=== PATIENT | female | born 1965 | race Caucasian/White ===

== ENCOUNTER 2018-11-26 20:03 | Inpatient (IN) | payer OTHER ==
[~2018-11-26] VITALS: Ht 134.6 cm; Wt 68.0 kg
[2018-11-26] MEDS ORDERED: SODIUM CHLORIDE 0.9% 1L BAG IV* STA (22:03)
[2018-11-26] MEDS ORDERED: ACETAMINOPHEN 325 MG TAB PO STA (22:03)
[2018-11-26] MEDS ORDERED: CEFTRIAXONE 1 GM/50 ML (PMX) 50 ML IVPB STA (22:03)
--- NOTE | 2018-11-26 22:17 | ERD ---
ER Documentation Chief Complaint Chief Complaint ap HPI The patient is a 53-year-old female, presenting to the ER because of epigastric abdominal pain for 3 days, had similar symptoms previously, no aggravating/relieving factor. The pain is worse for the last day. She denies fever, chills, neck pain, chest pain, vomiting, dysuria, diarrhea. She also complains of low abdominal pain. She does not smoke nor drink Past medical history: Gastritis, diabetes mellitus Past surgical history: 3 ROS All systems reviewed and are negative except as per history of present illness. Medications Home Meds Reported Medications Acetaminophen* (Acetaminophen*) 500 MG Extra Strength Tablet, 500 MG PO Q4H PRN for PAIN AND OR ELEVATED TEMP, TAB 11/27/18 Allergies Allergies: Coded Allergies: No Known Allergy (Unverified , 11/26/18) Physical Exam Vitals Vital Signs Date Temp Pulse Resp B/P (MAP) Pulse Ox O2 O2 Flow FiO2 Time Delivery Rate 11/26/18 93 18 115/75 99 Room Air 23:31 (88) 11/26/18 98.7 94 18 145/81 96 Room Air 22:00 (102) 11/26/18 100.1 119 18 145/81 96 20:57 (102) Physical Exam Const: No acute distress. Head: Atraumatic. Eyes: Normal Conjunctiva. ENT: Normal External Ears, Nose and Mouth. Neck: Full range of motion. No meningismus. Resp: Clear to auscultation bilaterally. Cardio: Regular rate and rhythm. Abd: Soft, non distended, normal bowel sounds, moderate and diffuse abdominal tenderness, more tenderness at the right upper quadrant and the suprapubic area, no rigidity/rebound/CVA tenderness Skin: No petechiae or rashes. Back: No midline or flank tenderness. Ext: No cyanosis, or edema. Neur: Awake and alert. No focal deficit Psych: Normal Mood and Affect. Result Diagram: 11/26/18221811/26/182217 Results 24 hrs Laboratory Tests Test 11/26/18 22:18 11/26/18 22:19 11/26/18 22:26 11/26/18 22:30 Prothrombin Time 13.0 Sec Prothrombin Time 1.0 Ratio INR 0.97 International Normalized Ratio Activated 30.9 Sec Partial Thrombop last Time Sodium Level 138 mmol/L Potassium Level 4.1 mmol/L Chloride Level 102 mmol/L Carbon Dioxide 24 mmol/L Level Anion Gap 12 Blood Urea 14 mg/dl Nitrogen Creatinine 0.63 mg/dl Est Glomerular > 60 mL/min Filtrat Rate mL/min Glucose Level 324 mg/dl Calcium Level 9.8 mg/dl Total Bilirubin 0.6 mg/dl Direct Bilirubin 0.00 mg/dl Indirect 0.6 mg/dl Bilirubin Aspartate Amino 26 IU/L Transf (AST/SGOT ) Alanine 32 IU/L Aminotransferase (ALT/SGPT) Alkaline 127 IU/L Phosphatase Troponin I < 0.012 ng/ml Total Protein 8.5 g/dl Albumin 4.4 g/dl Globulin 4.10 g/dl Albumin/Globulin 1.07 Ratio White Blood 12.8 10^3/ul Count Red Blood Count 5.78 10^6/ul Hemoglobin 14.1 g/dl Hematocrit 43.4 % Mean Corpuscular 75.1 fl Volume Mean Corpuscular 24.4 pg Hemoglobin Mean Corpuscular 32.5 g/dl Hemoglobin Elva nt Red Cell 14.6 % Distribution Width Platelet Count 181 10^3/UL Mean Platelet 12.3 fl Volume Immature 0.700 % Granulocytes % Neutrophils % 84.7 % Lymphocytes % 8.3 % Monocytes % 5.6 % Eosinophils % 0.1 % Basophils % 0.6 % Nucleated Red 0.0 /100WBC Blood Cells % Immature 0.090 10^3/ul Granulocytes # Neutrophils # 10.9 10^3/ul Lymphocytes # 1.1 10^3/ul Monocytes # 0.7 10^3/ul Eosinophils # 0.0 10^3/ul Basophils # 0.1 10^3/ul Nucleated Red 0.0 10^3/ul Blood Cells # Urine Color YELLOW Urine Clarity SLIGHTLY CLOUDY Urine pH 5.0 Urine Specific 1.039 [place] Urine Ketones 1+ mg/dL Urine Nitrite NEGATIVE mg/dL Urine Bilirubin NEGATIVE mg/dL Urine NEGATIVE mg/dL Urobilinogen Urine Leukocyte NEGATIVE Sen[place]/ul Esterase Urine 2 /HPF Microscopic RBC Urine 8 /HPF Microscopic WBC Urine Squamous FEW /HPF Epithelial Cells Urine Hemoglobin 1+ mg/dL Urine Glucose 3+ mg/dL Urine Total 1+ mg/dl Protein POC Venous 1.4 mmol/L Lactate Test 11/27/18 00:22 11/27/18 02:08 Lactic Acid 1.3 mmol/L 1.1 mmol/L Level Current Medications Medications Dose Sig/Nabil Start Time Status Last (Trade) Ordered Route PRN Stop Time Admin Dose Reason Admin Sodium 2,000 ml BOLUS OVER 2 11/26/18 DC 11/26/18 Chloride HOURS STAT 22:03 22:46 (NS) IV* 11/26/18 22:04 650 mg ONCE STAT 11/26/18 DC 11/26/18 Acetaminophen PO 22:03 22:46 (Tylenol 11/26/18 22:04 Tab) Ceftriaxone 50 ml @ ONCE STAT 11/26/18 DC 11/26/18 Sodium 100 mls/hr IVPB 22:03 22:45 11/26/18 22:32 Morphine 2 mg ONCE STAT 11/27/18 DC 11/27/18 Sulfate IV 01:54 02:07 (morphine) 11/27/18 01:56 Ketorolac 30 mg ONCE STAT 11/27/18 DC 11/27/18 Tromethamine IV 01:54 02:07 (Toradol) 11/27/18 01:56 Ondansetron 4 mg ONCE STAT 11/27/18 DC 11/27/18 HCl (Zofran IV 01:54 02:07 Inj) 11/27/18 01:56 Procedures/[place] [address] Radiology Main Line: [phone] DIAGNOSTIC IMAGING REPORT Patient: MILAGROS CONTRERAS : 1965 Age: 53 Sex: F MR #: [id number] DOS: 11/27/18 0143 Ordering MD: SIMA MOJICA MD Location: E/R Room/Bed: PROCEDURE: CT Abdomen and pelvis without contrast. CLINICAL INDICATION: Abdominal pain TECHNIQUE: CT scan of the abdomen and pelvis without contrast was performed on a multidetector high-resolution CT scan. . Coronal and sagittal reformatted images were obtained from the axial source images. Standard CT scan of the abdomen pelvis without contrast protocols were performed. The total exam CTDI equals 13.58 mGy and the total exam DLP equals 766.25 mGy- cm. One or more of the following dose reduction techniques were used: - Automated exposure control. - Adjustment of the mA and/or kV according to patient size. Use of iterative reconstruction technique. Dicom images are available COMPARISON: Abdominal ultrasound 11/26/2018 FINDINGS: Gallbladder is distended but no gallbladder wall thickening or pericholecystic fluid. As on the recent abdominal ultrasound the common bile duct is dilated with a maximal transverse diameter of approximately 8 mm. No intrahepatic david iary ductal dilation. No choledocholithiasis. Pancreas unremarkable. Follow-up MRCP may be helpful. Hepatomegaly with hepatic fatty infiltration. No focal hepatic lesions. Spleen and adrenal glands unremarkable. Kidneys normal in size without calcified calculi or hydronephrosis bilaterally. 2.5 cm right inferior parapelvic renal cyst. No other intra masses bilaterally. No evidence of ureteral calcified calculi or dilatation. Enlarged anteverted anteflexed uterus with globular enlarged fundus and superior body and rule out leiomyomatous uterus. In the lower lower uterine segment is a 2 cm elongated cyst likely a Nabothian cyst. No adnexal masses. The enlarged uterus demonstrates mass effect on an otherwise unremarkable urinary bladder. No evidence of intra-abdominal free air, free fluid, abscesses or lymphadenopathy. Small hiatal hernia. Stomach otherwise unremarkable. Small edwige l, large bowel and appendix unremarkable. Minimal atherosclerotic vascular disease. No aortic aneurysm. Right hilar calcified lymph node. Lung bases otherwise unremarkable. Abdominal pelvic wall unremarkable. Degenerative changes lower thoracic and lumbar spine without acute osseous findings are osteoblastic/osteolytic lesions. IMPRESSION: 1. No gastrointestinal disease. Specifically unremarkable appendix. 2. Distended gallbladder otherwise unremarkable. Dilated common bile duct maximal transverse diameter 8 mm without obstructing lesion demonstrated. Follow-up MRCP may be helpful. 3. Enlarged anteverted anteflexed uterus likely a leiomyomatous uterus with a 2 cm lower uterine segment cyst consistent with a Nabothian cyst. The enlarged uterus impresses the urinary bladder which is otherwise unremarkable. No adnexal masses. Follow-up pelvic ultrasound may be helpful. 4. No calcified urinary calculi or obstructive uropathy. 2.5 cm right inferior parapelvic renal cyst. RPTAT:AAJJ Physician Prisca Date Time Electronically viewed and signed by Physician Prisca on 11/27/2018 03:26 BM/ CC: SIMA MOJICA MD [id number] [place] [address] Radiology Main Line: [phone] DIAGNOSTIC IMAGING REPORT Patient: MILAGROS CONTRERAS : 1965 Age: 53 Sex: F MR #: [id number] DOS: 11/26/18 2203 Ordering MD: KARLI MANSFIELD MD Location: E/R Room/Bed: PROCEDURE: Portable chest x-ray. CLINICAL INDICATION: Sepsis. TECHNIQUE: Portable AP view of the chest. COMPARISON: None. FINDINGS: There is minimal bibasilar atelectasis. No pulmonary edema or conolidation is identified. The cardiac silhouette is magnified. No pleural effusion is seen. There is no pneumothorax. IMPRESSION: No evidence of acute cardiopulmonary disease. RPTAT: HTAR .Brennan Wright MD, MD Date Time Electronically viewed and signed by .Brennan Wright MD, MD on 11/26/2018 23:58 .R/ CC: KARLI MANSFIELD MD [id number] MEDICAL MAKING DECISION: The patient is a 53-year-old female, presenting with acute abdominal pain, concerning for acute choledocholithiasis, acute diabetic hyperglycemia. Treated with normosaline 30 mm/kg IV for acute dehydration/hyper glycemia, Rocephin 1 g IV empirically, Tylenol 650 mg p.o. for fever, morphine 2 mg IV and Toradol 30 mg IV for pain and Zofran 4 mg IV for nausea with good response. The differential diagnoses considered include but are not limited to cholelithiasis, cholecystitis, choledocholithiasis, cholangitis, pancreatitis, hepatitis, gastritis, peptic ulcer disease, gastric ulcer, appendicitis, cystitis, diverticulitis, partial small bowel obstruction. Departure Diagnosis: Primary Impression: Abdominal pain Additional Impressions: Hyperglycemia Fibroid Renal cyst, right Condition: Stable Comments The patient's blood pressure was elevated (>120/80) but appears stable without evidence of hypertension emergency or urgency. The patient was counseled about the risks of hypertension and urged to pursue outpatient monitoring and therapy within a week with their primary care physician. I discussed the findings with the patient. I discussed the patient with Dr. Gonzalez at 4 AM, who was made aware of the lab, the treatment, the patient condition. The patient is admitted to [facility], [facility] Disclaimer: Inadvertent spelling and grammatical errors are likely due to E HR/dictation software use and do not reflect on the overall quality of patient care. Also, please note that the electronic time recorded on this note does not necessarily reflect the actual time of the patient encounter. SIMA MOJICA MD November 26, 2018 22:17
[2018-11-27] MEDS ORDERED: KETOROLAC 30 MG INJ IV STA (01:54)
[2018-11-27] MEDS ORDERED: morphine 2 MG INJ IV STA (01:54)
[2018-11-27] MEDS ORDERED: ONDANSETRON 4 MG INJ IV STA (01:54)
[2018-11-27] MEDS ORDERED: ACET-141 PO (02:47)
[2018-11-27 05:10] VITALS: Ht 134.6 cm; Wt 68.0 kg
[2018-11-27] MEDS ORDERED: NACL 0.9% 3 ML SYG IV SCH (06:00)
[2018-11-27] MEDS ORDERED: ALBUTEROL/IPRATROPIUM (NEB) 3 ML AMP HHN PRN (06:00)
[2018-11-27] MEDS: DEXTROSE 5%-0.45% NACL 1,000 ML IV SCH ×3 (06:24→18:41)
[2018-11-27 08:00] VITALS: BP 133/81; PULSE 84; RESP 17
[2018-11-27] MEDS: CEFTRIAXONE 1 GM/50 ML (PMX) 50 ML IVPB SCH (08:39)
[2018-11-27] MEDS: FAMOTIDINE 20 MG INJ IV SCH ×2 (08:40→21:11)
--- NOTE | 2018-11-27 08:56 | HP ---
Date/Time of Note Date/Time of Note DATE: 11/27/18 TIME: 08:48 Assessment/Plan VTE Prophylaxis Pharmacological prophylaxis: other Lines/Catheters IV Catheter Type (from Nrsg): Saline Lock Assessment/Plan Assessment/Plan 1. Lower back/right upper back/right hip area pain -Patient with a history of surgery in those areas -CT abdomen/pelvis did not product picker any abnormality in the hip or back area -Will obtain x-ray of lumbar -Pain management -PT eval 2. Dilated GB and CBD -LFTs WNL -Check MRCP and lipase -GI consulted for MRCP results 3. Hyperglycemia: Patient denied history of diabetes -Check A1c -Insulin while in-house 4. UTI: IV antibiotic. Follow-up culture results Result Diagram: 11/26/18221811/26/188 Results 24hrs Laboratory Tests Test 11/26/18 22:18 11/26/18 22:19 11/26/18 22:26 11/26/18 22:30 Prothrombin Time 13.0 Prothrombin Time 1.0 Ratio INR International 0.97 Normalized Ratio Activated 30.9 Partial Thrombopl ast Time Sodium Level 138 Potassium Level 4.1 Chloride Level 102 Carbon Dioxide 24 Level Anion Gap 12 Blood Urea 14 Nitrogen Creatinine 0.63 Est Glomerular > 60 Filtrat Rate mL/min Glucose Level 324 H Calcium Level 9.8 Total Bilirubin 0.6 Direct Bilirubin 0.00 Indirect 0.6 Bilirubin Aspartate Amino 26 Transf (AST/SGOT) Alanine 32 Aminotransferase (ALT/SGPT) Alkaline 127 H Phosphatase Troponin I < 0.012 Total Protein 8.5 H Albumin 4.4 Globulin 4.10 H Albumin/Globulin 1.07 Ratio White Blood Count 12.8 H Red Blood Count 5.78 H Hemoglobin 14.1 Hematocrit 43.4 Mean Corpuscular 75.1 L Volume Mean Corpuscular 24.4 L Hemoglobin Mean Corpuscular 32.5 Hemoglobin Concen t Red Cell 14.6 H Distribution Width Platelet Count 181 Mean Platelet 12.3 H Volume Immature 0.700 H Granulocytes % Neutrophils % 84.7 H Lymphocytes % 8.3 L Monocytes % 5.6 Eosinophils % 0.1 Basophils % 0.6 Nucleated Red 0.0 Blood Cells % Immature 0.090 H Granulocytes # Neutrophils # 10.9 H Lymphocytes # 1.1 Monocytes # 0.7 Eosinophils # 0.0 Basophils # 0.1 Nucleated Red 0.0 Blood Cells # Urine Color YELLOW Urine Clarity SLIGHTLY CLOUDY A Urine pH 5.0 Urine Specific 1.039 [place] Urine Ketones 1+ H Urine Nitrite NEGATIVE Urine Bilirubin NEGATIVE Urine NEGATIVE Urobilinogen Urine Leukocyte NEGATIVE Esterase Urine Microscopic 2 RBC Urine Microscopic 8 H WBC Urine Squamous FEW Epithelial Cells Urine Hemoglobin 1+ H Urine Glucose 3+ H Urine Total 1+ H Protein POC Venous 1.4 Lactate Test 11/27/18 00:22 11/27/18 02:08 Lactic Acid Level 1.3 1.1 HPI/ROS Admit Date/Time Admit Date/Time November 27, 2018 at 04:02 Hx of Present Illness This is a 53-year-old female with a history of lower back surgery and 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 She said the lower back and right upper buttock/hip area pain is been going on for 2 years. The suprapubic/lower abdominal area pain for the past 3 days. She said at times walking has been difficult because of pain. She denied urinary or bladder incontinence. No other complaints. When she presented to ER, CT abdomen/pelvis was done which shows the followin. No gastrointestinal disease. Specifically unremarkable appendix. 2. Distended gallbladder otherwise unremarkable. Dilated common bile duct maximal transverse diameter 8 mm without obstructing lesion demonstrated. Follow-up MRCP may be helpful. 3. Enlarged anteverted anteflexed uterus likely a leiomyomatous uterus with a 2 cm lower uterine segment cyst consistent with a Nabothian cyst. The enlarged uterus impresses the urinary bladder which is otherwise unremarkable. No adnexal masses. Follow-up pelvic ultrasound may be helpful. 4. No calcified urinary calculi or obstructive uropathy. 2.5 cm right inferior parapelvic renal cyst. Labs shows a WBC of almost 13,000 and blood glucose of around 320. She denied history of diabetes. UA is suggestive of UTI, which correlates with suprapubic/lower abdominal pain PMH/Family/Social Past Medical History Medical History: other (See HPI) Past Surgical History Past Surgical Hx: other (See HPI) Family History Significant Family History: no pertinent family hx Social History Alcohol Use: none Smoking Status: Never smoker Drug Use: none Exam Constitutional: no acute distress Head: normocephalic, atraumatic Eyes: EOMI, PERRL Respiratory: clear to auscultation, normal air movement Cardiovascular: regular rate and rhythm, nl pulses Gastrointestinal: soft, non-tender Extremities: normal pulses Medications Current Medications Dextrose/Sodium Chloride 1,000 ml @ 100 mls/hr Q10H IV Last administered on 11/27/18at 06:24; Admin Dose 100 MLS/HR; Start 11/27/18 at 05:38 IV Flush (NS 3 ml) 3 ml PER PROTOCOL IV ; Start 11/27/18 at 06:00 Ondansetron HCl (Zofran Inj) 4 mg Q6H PRN IV NAUSEA/VOMITING; Start 11/27/18 at 06:00 Morphine Sulfate (morphine) 2 mg Q4H PRN IV .SEVERE PAIN 7-10; Start 11/27/18 at 06:00 Famotidine (Pepcid Iv) 20 mg Q12 IV Last administered on 11/27/18at 08:40; Admin Dose 20 MG; Start 11/27/18 at 09:00 Albuterol/ Ipratropium (Duoneb) 3 ml Q2H RESP THERAPY PRN HHN SHORTNESS OF BREATH; Start 11/27/18 at 06:00 Ceftriaxone Sodium 50 ml @ 100 mls/hr DAILY IVPB Last administered on 11/27/18at 08:39; Admin Dose 100 MLS/HR; Start 11/27/18 at 09:00 Coded Allergies: No Known Allergy (Unverified , 11/26/18) Social History Smoking Status: Never smoker Exam/Review of Systems Vital Signs Vitals Vital Signs Date Temp Pulse Resp B/P (MAP) Pulse Ox O2 O2 Flow FiO2 Time Delivery Rate 11/27/18 99.3 84 17 133/81 97 Room Air 08:00 (98) Intake and Output 11/26/18 11/26/18 11/27/18 1515:00 23:00 07:00 IntakeIntake Total 1000 ml BalanceBalance 1000 ml CHERYL ALVA MD November 27, 2018 08:56
[2018-11-27] MEDS: morphine 2 MG INJ IV PRN ×2 (10:45→15:56)
[2018-11-27 14:00] VITALS: BP 160/89; PULSE 97; RESP 18
[2018-11-27 17:10] VITALS: BP 148/79; PULSE 89; RESP 17
[2018-11-27] MEDS ORDERED: LORAZEPAM 2 MG INJ IM ONE (17:30)
[2018-11-27] MEDS: ONDANSETRON 4 MG INJ IV PRN (18:40)
[2018-11-27 20:00] VITALS: BP 127/82; PULSE 99; RESP 18
[2018-11-28 02:00] VITALS: BP 121/74; PULSE 87; RESP 18
[2018-11-28] MEDS: DEXTROSE 5%-0.45% NACL 1,000 ML IV SCH ×2 (04:32→11:38)
[2018-11-28] MEDS: morphine 2 MG INJ IV PRN ×2 (04:36→21:04)
[2018-11-28 08:36] VITALS: BP 142/84; PULSE 80; RESP 18
[2018-11-28] MEDS: CEFTRIAXONE 1 GM/50 ML (PMX) 50 ML IVPB SCH (08:56)
[2018-11-28] MEDS: FAMOTIDINE 20 MG INJ IV SCH ×2 (08:56→21:03)
[2018-11-28] MEDS: ONDANSETRON 4 MG INJ IV PRN ×3 (09:01→21:04)
--- NOTE | 2018-11-28 13:46 | PN ---
Date/Time of Note Date/Time of Note DATE: 11/27/18 Late entry from 11/27/2018 Assessment/Plan VTE Prophylaxis Risk score (from Ns)>0 risk: 2 SCD applied (from Ns): Yes Pharmacological prophylaxis: other Lines/Catheters IV Catheter Type (from Nrs): Peripheral IV Urinary Cath still in place: No Assessment/Plan Hospital Course S: Patient had no acute events overnight. O: VS- see below PE: Gen: Lying in bed, no acute distress. Head: Atraumatic. Eyes: Normal Conjunctiva. ENT: Normal External Ears, Nose and Mouth. Neck: Full range of motion. No meningismus. Resp: Clear to auscultation bilaterally. Cardio: Regular rate and rhythm. Abd: Soft, non distended, normal bowel sounds, moderate and diffuse abdominal tenderness, some positive tenderness at the right upper quadrant and the suprapubic area, no rigidity/rebound/CVA tenderness Ext: No lower extremity edema bilaterally Neuro: No focal deficit Assessment/Plan: 53-year-old female who presents with: 1. Lower back/right upper back/right hip area pain-Patient with a history of surgery in those areas-CT abdomen/pelvis did not pickup driver any abnormality in the hip or back area. Lumbar x-ray results reviewed -For now continue pain management -Follow-up PT eval 2. Dilated GB and CBD-LFTs WNL -Will check MRCP and lipase -Consider GI consult depending on the MRCP results 3. Hyperglycemia: Patient denied history of diabetes. Sugar was 324 and admission, no DKA. -Follow-up A1c, monitor sugars -Insulin while in-house 4. UTI: UA was negative, urine culture showed mixed growth, possible contaminant -Monitor for now, consider stopping IV antibiotic. -Follow-up final culture results Result Diagram: 11/28/18 0538 11/26/18 2218 Results 24hrs Laboratory Tests Test 11/27/18 17:49 11/28/18 05:38 Hemoglobin A1c 10.9 H Iron Level 15 L Total Iron Binding Capacity 320 Percent Iron Saturation 5 L White Blood Count 5.1 # Red Blood Count 5.09 Hemoglobin 12.5 Hematocrit 38.6 Mean Corpuscular Volume 75.8 L Mean Corpuscular Hemoglobin 24.6 L Mean Corpuscular Hemoglobin Concent 32.4 Red Cell Distribution Width 14.7 H Platelet Count 180 Mean Platelet Volume 12.7 H Immature Granulocytes % 0.200 Neutrophils % 55.5 Lymphocytes % 30.7 Monocytes % 10.8 Eosinophils % 1.8 Basophils % 1.0 Nucleated Red Blood Cells % 0.0 Immature Granulocytes # 0.010 Neutrophils # 2.8 Lymphocytes # 1.6 Monocytes # 0.6 Eosinophils # 0.1 Basophils # 0.1 Nucleated Red Blood Cells # 0.0 Phosphorus Level 3.8 Magnesium Level 1.9 Total Bilirubin 0.3 Direct Bilirubin 0.00 Indirect Bilirubin 0.3 Aspartate Amino Transf (AST/SGOT) 35 Alanine Aminotransferase (ALT/SGPT) 28 Alkaline Phosphatase 75 Total Protein 6.8 # Albumin 3.7 Triglycerides Level 330 H Cholesterol Level 244 H LDL Cholesterol, Calculated 147 HDL Cholesterol 31 L Cholesterol/HDL Ratio 7.8 Exam/Review of Systems Exam Vitals Vital Signs Date Temp Pulse Resp B/P (MAP) Pulse Ox O2 O2 Flow FiO2 Time Delivery Rate 11/28/18 98.2 80 18 142/84 96 08:36 (103) 11/27/18 Room Air 08:00 Intake and Output 11/27/18 11/27/18 11/28/18 1515:00 23:00 07:00 IntakeIntake Total 50 ml 1000 ml 1000 ml BalanceBalance 50 ml 1000 ml 1000 ml Results Results 24hrs Laboratory Tests Test 11/27/18 17:49 11/28/18 05:38 Hemoglobin A1c 10.9 H Iron Level 15 L Total Iron Binding Capacity 320 Percent Iron Saturation 5 L White Blood Count 5.1 # Red Blood Count 5.09 Hemoglobin 12.5 Hematocrit 38.6 Mean Corpuscular Volume 75.8 L Mean Corpuscular Hemoglobin 24.6 L Mean Corpuscular Hemoglobin Concent 32.4 Red Cell Distribution Width 14.7 H Platelet Count 180 Mean Platelet Volume 12.7 H Immature Granulocytes % 0.200 Neutrophils % 55.5 Lymphocytes % 30.7 Monocytes % 10.8 Eosinophils % 1.8 Basophils % 1.0 Nucleated Red Blood Cells % 0.0 Immature Granulocytes # 0.010 Neutrophils # 2.8 Lymphocytes # 1.6 Monocytes # 0.6 Eosinophils # 0.1 Basophils # 0.1 Nucleated Red Blood Cells # 0.0 Phosphorus Level 3.8 Magnesium Level 1.9 Total Bilirubin 0.3 Direct Bilirubin 0.00 Indirect Bilirubin 0.3 Aspartate Amino Transf (AST/SGOT) 35 Alanine Aminotransferase (ALT/SGPT) 28 Alkaline Phosphatase 75 Total Protein 6.8 # Albumin 3.7 Triglycerides Level 330 H Cholesterol Level 244 H LDL Cholesterol, Calculated 147 HDL Cholesterol 31 L Cholesterol/HDL Ratio 7.8 Medications Medication Current Medications Dextrose/Sodium Chloride 1,000 ml @ 100 mls/hr Q10H IV Last administered on 11/28/18 04:32; Admin Dose 100 MLS/HR; Start 11/27/18 at 05:38 IV Flush (NS 3 ml) 3 ml PER PROTOCOL IV ; Start 11/27/18 at 06:00 Ondansetron HCl (Zofran Inj) 4 mg Q6H PRN IV NAUSEA/VOMITING Last administered on 11/28/18 09:01; Admin Dose 4 MG; Start 11/27/18 at 06:00 Morphine Sulfate (morphine) 2 mg Q4H PRN IV .SEVERE PAIN 7-10 Last administered on 11/28/18 04:36; Admin Dose 2 MG; Start 11/27/18 at 06:00 Famotidine (Pepcid Iv) 20 mg Q12 IV Last administered on 11/28/18at 08:56; Admin Dose 20 MG; Start 11/27/18 at 09:00 Albuterol/ Ipratropium (Duoneb) 3 ml Q2H RESP THERAPY PRN HHN SHORTNESS OF BREATH; Start 11/27/18 at 06:00 Ceftriaxone Sodium 50 ml @ 100 mls/hr DAILY IVPB Last administered on 11/28/18 08:56; Admin Dose 100 MLS/HR; Start 11/27/18 at 09:00 CATIE TOURE November 28, 2018 13:46
--- NOTE | 2018-11-28 13:51 | PN ---
Date/Time of Note Date/Time of Note DATE: 11/28/18 TIME: 13:48 Assessment/Plan VTE Prophylaxis Risk score (from Nsg)>0 risk: 2 SCD applied (from Nsg): Yes Pharmacological prophylaxis: other Lines/Catheters IV Catheter Type (from Nrsg): Peripheral IV Urinary Cath still in place: No Assessment/Plan Hospital Course S: Patient had MRCP performed yesterday, results reviewed. Asking for liquid diet. O: VS- see below PE: Gen: Lying in bed, no acute distress. Head: Atraumatic. Eyes: Normal Conjunctiva. ENT: Normal External Ears, Nose and Mouth. Neck: Full range of motion. No meningismus. Resp: Clear to auscultation bilaterally. Cardio: Regular rate and rhythm. Abd: Soft,non distended, normal bowel sounds, moderate and diffuse abdominal tenderness, some positive tenderness at the right upper quadrant and the suprapubic area, no rigidity/rebound/CVA tenderness Ext: No lower extremity edema bilaterally Neuro: No focal deficit MRCP: IMPRESSION: No evidence of biliary duct obstruction. No gallstones. Assessment/Plan: 53-year-old female who presents with: 1. Lower back/right upper back/right hip area pain-Patient with a history of surgery in those areas-CT abdomen/pelvis did not mushroom picker any abnormality in the hip or back area. Lumbar x-ray results reviewed, as well as MRCP did not show any acute findings. -For now continue pain management -Follow-up lipase levels. -Follow-up PT eval 2. Dilated GB and CBD-LFTs WNL. MRCP did not show any acute findings. -Again, still waiting for lipase levels -follow-up results of this -Consider GI consult 3. Hyperglycemia: Patient denied history of diabetes. Sugar was 324 and admission, A1c 10.9. -We will start ISS, monitor sugars 4. UTI: UA was negative, urine culture showed mixed growth, possible contaminant -Monitor for now, -Follow-up final culture results 5. Elevated cholesterol: Start Lipitor 6. Low MCV: Hemoglobin stable, iron levels are low. -We will give 1 dose of IV iron. Result Diagram: 11/28/18 0538 11/26/18 2218 Results 24hrs Laboratory Tests Test 11/27/18 17:49 11/28/18 05:38 Hemoglobin A1c 10.9 H Iron Level 15 L Total Iron Binding Capacity 320 Percent Iron Saturation 5 L White Blood Count 5.1 # Red Blood Count 5.09 Hemoglobin 12.5 Hematocrit 38.6 Mean Corpuscular Volume 75.8 L Mean Corpuscular Hemoglobin 24.6 L Mean Corpuscular Hemoglobin Concent 32.4 Red Cell Distribution Width 14.7 H Platelet Count 180 Mean Platelet Volume 12.7 H Immature Granulocytes % 0.200 Neutrophils % 55.5 Lymphocytes % 30.7 Monocytes % 10.8 Eosinophils % 1.8 Basophils % 1.0 Nucleated Red Blood Cells % 0.0 Immature Granulocytes # 0.010 Neutrophils # 2.8 Lymphocytes # 1.6 Monocytes # 0.6 Eosinophils # 0.1 Basophils # 0.1 Nucleated Red Blood Cells # 0.0 Phosphorus Level 3.8 Magnesium Level 1.9 Total Bilirubin 0.3 Direct Bilirubin 0.00 Indirect Bilirubin 0.3 Aspartate Amino Transf (AST/SGOT) 35 Alanine Aminotransferase (ALT/SGPT) 28 Alkaline Phosphatase 75 Total Protein 6.8 # Albumin 3.7 Triglycerides Level 330 H Cholesterol Level 244 H LDL Cholesterol, Calculated 147 HDL Cholesterol 31 L Cholesterol/HDL Ratio 7.8 Exam/Review of Systems Exam Vitals Vital Signs Date Temp Pulse Resp B/P (MAP) Pulse Ox O2 O2 Flow FiO2 Time Delivery Rate 11/28/18 98.2 80 18 142/84 96 08:36 (103) 11/27/18 Room Air 08:00 Intake and Output 11/27/18 11/27/18 11/28/18 1515:00 23:00 07:00 IntakeIntake Total 50 ml 1000 ml 1000 ml BalanceBalance 50 ml 1000 ml 1000 ml Results Results 24hrs Laboratory Tests Test 11/27/18 17:49 11/28/18 05:38 Hemoglobin A1c 10.9 H Iron Level 15 L Total Iron Binding Capacity 320 Percent Iron Saturation 5 L White Blood Count 5.1 # Red Blood Count 5.09 Hemoglobin 12.5 Hematocrit 38.6 Mean Corpuscular Volume 75.8 L Mean Corpuscular Hemoglobin 24.6 L Mean Corpuscular Hemoglobin Concent 32.4 Red Cell Distribution Width 14.7 H Platelet Count 180 Mean Platelet Volume 12.7 H Immature Granulocytes % 0.200 Neutrophils % 55.5 Lymphocytes % 30.7 Monocytes % 10.8 Eosinophils % 1.8 Basophils % 1.0 Nucleated Red Blood Cells % 0.0 Immature Granulocytes # 0.010 Neutrophils # 2.8 Lymphocytes # 1.6 Monocytes # 0.6 Eosinophils # 0.1 Basophils # 0.1 Nucleated Red Blood Cells # 0.0 Phosphorus Level 3.8 Magnesium Level 1.9 Total Bilirubin 0.3 Direct Bilirubin 0.00 Indirect Bilirubin 0.3 Aspartate Amino Transf (AST/SGOT) 35 Alanine Aminotransferase (ALT/SGPT) 28 Alkaline Phosphatase 75 Total Protein 6.8 # Albumin 3.7 Triglycerides Level 330 H Cholesterol Level 244 H LDL Cholesterol, Calculated 147 HDL Cholesterol 31 L Cholesterol/HDL Ratio 7.8 Medications Medication Current Medications Dextrose/Sodium Chloride 1,000 ml @ 100 mls/hr Q10H IV Last administered on 11/28/18 04:32; Admin Dose 100 MLS/HR; Start 11/27/18 at 05:38 IV Flush (NS 3 ml) 3 ml PER PROTOCOL IV ; Start 11/27/18 at 06:00 Ondansetron HCl (Zofran Inj) 4 mg Q6H PRN IV NAUSEA/VOMITING Last administered on 11/28/18 09:01; Admin Dose 4 MG; Start 11/27/18 at 06:00 Morphine Sulfate (morphine) 2 mg Q4H PRN IV .SEVERE PAIN 7-10 Last administered on 11/28/18 04:36; Admin Dose 2 MG; Start 11/27/18 at 06:00 Famotidine (Pepcid Iv) 20 mg Q12 IV Last administered on 11/28/18 08:56; Admin Dose 20 MG; Start 11/27/18 at 09:00 Albuterol/ Ipratropium (Duoneb) 3 ml Q2H RESP THERAPY PRN HHN SHORTNESS OF BREATH; Start 11/27/18 at 06:00 Ceftriaxone Sodium 50 ml @ 100 mls/hr DAILY IVPB Last administered on 11/28/18 08:56; Admin Dose 100 MLS/HR; Start 11/27/18 at 09:00 CATIE TOURE November 28, 2018 13:51
[2018-11-28] MEDS ORDERED: DEXTROSE 50% 50 ML SYRINGE IV PRN ×2 (14:30)
[2018-11-28] MEDS ORDERED: GLUCAGON 1 MG INJ IM PRN (14:30)
[2018-11-28] MEDS ORDERED: GLUCOSE GEL 15 GRAM TUBE BUCCAL PRN (14:30)
[2018-11-28] MEDS ORDERED: GLUCOSE GEL 15 GRAM TUBE PO PRN ×2 (14:30)
[2018-11-28] MEDS ORDERED: SOD FERRIC GLUC COMPLX 125 MG in SOD CHLORIDE 0.9% 100 ML IVPB ONE (15:30)
[2018-11-28] MEDS: ATORVASTATIN 40 MG TAB PO SCH ×2 (16:08→21:03)
[2018-11-28 16:27] VITALS: BP 167/85; PULSE 79; RESP 16
[2018-11-28] MEDS: INSULIN ASPART [NOVOLOG] 3 ML PEN SC SCH ×2 (18:01→21:00)
[2018-11-28 20:00] VITALS: BP 147/87; PULSE 79; RESP 18
[2018-11-29 02:00] VITALS: BP 140/77; PULSE 69; RESP 18
[2018-11-29] MEDS: ACCU-CHEK XX SCH (02:00)
[2018-11-29] MEDS: ACETAMINOPHEN 325 MG TAB PO PRN ×2 (03:09→10:17)
[2018-11-29 08:29] VITALS: BP 135/81; PULSE 77; RESP 17
[2018-11-29] MEDS: FAMOTIDINE 20 MG TAB PO SCH ×2 (08:32→20:16)
[2018-11-29] MEDS: INSULIN ASPART [NOVOLOG] 3 ML PEN SC SCH ×4 (08:32→20:15)
[2018-11-29] MEDS: CEFTRIAXONE 1 GM/50 ML (PMX) 50 ML IVPB SCH (08:32)
[2018-11-29] MEDS: ONDANSETRON 4 MG INJ IV PRN (10:18)
--- NOTE | 2018-11-29 11:51 | PN ---
Date/Time of Note Date/Time of Note DATE: 11/29/18 TIME: 11:48 Assessment/Plan VTE Prophylaxis Risk score (from Nsg)>0 risk: 3 SCD applied (from Nsg): Yes Pharmacological prophylaxis: other Lines/Catheters IV Catheter Type (from Nrsg): [place] Urinary Cath still in place: No Assessment/Plan Hospital Course S: Patient still complaining of headache symptoms. O: VS- see below PE: Gen: Lying in bed, no acute distress. Head: Atraumatic. Eyes: Normal Conjunctiva. ENT: Normal External Ears, Nose and Mouth. Neck: Full range of motion. No meningismus. Resp: Clear to auscultation bilaterally. Cardio: Regular rate and rhythm. Abd: Soft,non distended, normal bowel sounds, less abdominal tenderness, no rigidity/rebound/CVA tenderness Ext: No lower extremity edema bilaterally Neuro: No focal deficit MRCP: IMPRESSION: No evidence of biliary duct obstruction. No gallstones. Assessment/Plan: 53-year-old female who presents with: 1. Lower back/right upper back/right hip area pain-Patient with a history of surgery in those areas-CT abdomen/pelvis did not last picker any abnormality in the hip or back area. Lumbar x-ray results reviewed, as well as MRCP did not show any acute findings. Lipase has been normal and patient has been tolerating clear liquid diet -For now advance to carb controlled diet -Continue PRN pain control medications 2. Dilated GB and CBD-LFTs WNL. MRCP did not show any acute findings. Again lipase normal. However patient complaining of headache -Monitor for now, given headache symptoms we will obtain head CT 3. Likely new diabetes: Patient denied history of diabetes on admission, however, sugar was 324 A1c 10.9. -For now continue with ISS, monitor sugars, will also obtain family living educator consult 4. UTI: UA was negative, urine culture showed mixed growth, possible contaminant -Monitor for now 5. Elevated cholesterol: Lipitor 6. Low MCV: Hemoglobin stable, received IV iron earlier for low iron levels -Monitor CBC Dispo: Likely home in 24 hours if sugars improved, seen by family living educator, results of head CT urine, and her overall pain symptoms have improved Result Diagram: 11/29/18 0525 11/29/18 0525 Results 24hrs Laboratory Tests Test 11/28/18 14:07 11/28/18 17:49 11/28/18 21:03 11/29/18 05:25 Sodium Level 138 139 Potassium Level 4.4 3.8 Chloride Level 103 104 Carbon Dioxide Level 24 26 Anion Gap 11 9 Blood Urea Nitrogen 12 16 Creatinine 0.47 0.59 Est Glomerular > 60 > 60 Filtrat Rate mL/min Glucose Level 243 H 155 Calcium Level 9.0 9.5 Total Bilirubin 0.3 Direct Bilirubin 0.00 Indirect Bilirubin 0.3 Aspartate Amino 36 Transf (AST/SGOT) Alanine 36 Aminotransferase (AL T/SGPT) Alkaline Phosphatase 90 Total Protein 7.0 Albumin 3.8 Globulin 3.20 Albumin/Globulin 1.18 Ratio Lipase 159 Bedside Glucose 198 139 White Blood Count 5.9 Red Blood Count 5.30 Hemoglobin 13.0 Hematocrit 40.0 Mean Corpuscular 75.5 L Volume Mean Corpuscular 24.5 L Hemoglobin Mean Corpuscular 32.5 Hemoglobin Concent Red Cell 14.5 Distribution Width Platelet Count 230 # Mean Platelet Volume 12.1 H Immature 0.300 Granulocytes % Neutrophils % 54.3 Lymphocytes % 32.9 Monocytes % 9.9 Eosinophils % 1.9 Basophils % 0.7 Nucleated Red Blood 0.0 Cells % Immature 0.020 Granulocytes # Neutrophils # 3.2 Lymphocytes # 1.9 Monocytes # 0.6 Eosinophils # 0.1 Basophils # 0.0 Nucleated Red Blood 0.0 Cells # Phosphorus Level 3.5 Magnesium Level 2.0 Test 11/29/18 08:31 Bedside Glucose 173 Exam/Review of Systems Exam Vitals Vital Signs Date Temp Pulse Resp B/P (MAP) Pulse Ox O2 O2 Flow FiO2 Time Delivery Rate 11/29/18 98.1 77 17 135/81 97 08:29 (99) 11/28/18 Room Air 16:27 Intake and Output 11/28/18 11/28/18 11/29/18 1515:00 23:00 07:00 IntakeIntake Total 950 ml 680 ml 240 ml BalanceBalance 950 ml 680 ml 240 ml Results Results 24hrs Laboratory Tests Test 11/28/18 14:07 11/28/18 17:49 11/28/18 21:03 11/29/18 05:25 Sodium Level 138 139 Potassium Level 4.4 3.8 Chloride Level 103 104 Carbon Dioxide Level 24 26 Anion Gap 11 9 Blood Urea Nitrogen 12 16 Creatinine 0.47 0.59 Est Glomerular > 60 > 60 Filtrat Rate mL/min Glucose Level 243 H 155 Calcium Level 9.0 9.5 Total Bilirubin 0.3 Direct Bilirubin 0.00 Indirect Bilirubin 0.3 Aspartate Amino 36 Transf (AST/SGOT) Alanine 36 Aminotransferase (AL T/SGPT) Alkaline Phosphatase 90 Total Protein 7.0 Albumin 3.8 Globulin 3.20 Albumin/Globulin 1.18 Ratio Lipase 159 Bedside Glucose 198 139 White Blood Count 5.9 Red Blood Count 5.30 Hemoglobin 13.0 Hematocrit 40.0 Mean Corpuscular 75.5 L Volume Mean Corpuscular 24.5 L Hemoglobin Mean Corpuscular 32.5 Hemoglobin Concent Red Cell 14.5 Distribution Width Platelet Count 230 # Mean Platelet Volume 12.1 H Immature 0.300 Granulocytes % Neutrophils % 54.3 Lymphocytes % 32.9 Monocytes % 9.9 Eosinophils % 1.9 Basophils % 0.7 Nucleated Red Blood 0.0 Cells % Immature 0.020 Granulocytes # Neutrophils # 3.2 Lymphocytes # 1.9 Monocytes # 0.6 Eosinophils # 0.1 Basophils # 0.0 Nucleated Red Blood 0.0 Cells # Phosphorus Level 3.5 Magnesium Level 2.0 Test 11/29/18 08:31 Bedside Glucose 173 Medications Medication Current Medications IV Flush (NS 3 ml) 3 ml PER PROTOCOL IV ; Start 11/27/18 at 06:00 Ondansetron HCl (Zofran Inj) 4 mg Q6H PRN IV NAUSEA/VOMITING Last administered on 11/29/18at 10:18; Admin Dose 4 MG; Start 11/27/18 at 06:00 Morphine Sulfate (morphine) 2 mg Q4H PRN IV .SEVERE PAIN 7-10 Last administered on 11/28/18at 21:04; Admin Dose 2 MG; Start 11/27/18 at 06:00 Albuterol/ Ipratropium (Duoneb) 3 ml Q2H RESP THERAPY PRN HHN SHORTNESS OF BREATH; Start 11/27/18 at 06:00 Atorvastatin Calcium (Lipitor) 40 mg HS PO Last administered on 11/28/18at 21:03; Admin Dose 40 MG; Start 11/28/18 at 14:00 Diagnostic Test (Pha) (Accu-Chek) 1 ea 02 XX ; Start 11/29/18 at 02:00 Insulin Aspart (Novolog Insulin Pen) NOVOLOG *MILD* ALGORITHM WITH MEALS BEDTIME SC Last administered on 11/29/18at 08:32; Admin Dose 1 UNIT; Start 11/28/18 at 18:05 Miscellaneous Information 1 ea NOTE XX ; Start 11/28/18 at 14:30 Glucose (Glutose) 15 gm Q15M PRN PO DECREASED GLUCOSE; Start 11/28/18 at 14:30 Glucose (Glutose) 22.5 gm Q15M PRN PO DECREASED GLUCOSE; Start 11/28/18 at 14:30 Dextrose (D50w Syringe) 25 ml Q15M PRN IV DECREASED GLUCOSE; Start 11/28/18 at 14:30 Dextrose (D50w Syringe) 50 ml Q15M PRN IV DECREASED GLUCOSE; Start 11/28/18 at 14:30 Glucagon (Glucagen) 1 mg Q15M PRN IM DECREASED GLUCOSE; Start 11/28/18 at 14:30 Glucose (Glutose) 15 gm Q15M PRN BUCCAL DECREASED GLUCOSE; Start 11/28/18 at 14:30 Acetaminophen (Tylenol Tab) 650 mg Q6H PRN PO MILD PAIN(1-3)OR ELEVATED TEMP Last administered on 11/29/18at 10:17; Admin Dose 650 MG; Start 11/29/18 at 03:00 Famotidine (Pepcid) 20 mg Q12 PO Last administered on 11/29/18at 08:32; Admin Dose 20 MG; Start 11/29/18 at 09:00 CATIE TOURE November 29, 2018 11:51
[2018-11-29 14:35] VITALS: BP 153/85; PULSE 72; RESP 18
[2018-11-29] MEDS: HYDROCODONE/APAP (5/325) TAB PO PRN (15:17)
[2018-11-29 20:00] VITALS: BP 163/88; PULSE 78; RESP 18
[2018-11-29] MEDS: ATORVASTATIN 40 MG TAB PO SCH (20:16)
[2018-11-30 02:00] VITALS: BP 132/82; PULSE 78; RESP 17
[2018-11-30] MEDS: ACCU-CHEK XX SCH (02:00)
[2018-11-30] MEDS: HYDROCODONE/APAP (5/325) TAB PO PRN (07:18)
[2018-11-30 08:00] VITALS: BP 162/82; PULSE 75; RESP 18
[2018-11-30] MEDS: INSULIN ASPART [NOVOLOG] 3 ML PEN SC SCH ×3 (08:02→17:20)
[2018-11-30] MEDS: FAMOTIDINE 20 MG TAB PO SCH (08:02)
--- NOTE | 2018-11-30 09:21 | PN ---
DATE: 11/27/2018 SUBJECTIVE: The patient seen by physical therapy team earlier today. Still having occasional abdomi nal pain. Waiting for imaging studies to be performed. OBJECTIVE: VITAL SIGNS: Stable. GENERAL: The patient is lying in bed, answering questions appropriately. Family at the bedside. HEENT: Pupils equal, round, react to light. Extraocular muscles intact. NECK: Supple. No thyromegaly. LUNGS: Clear to auscultation bilaterally. CARDIOVASCULAR: S1, S2 heard. No rubs or gallops. ABDOMEN: Mild tenderness to palpation in epigastric area. No rebound or guarding. MUSCULOSKELETAL: No lower extremity edema bilaterally. NEUROLOGIC: No focal deficits. LABORATORY DATA: There are no new labs from this morning, but yesterday's labs showed a normal compr ehensive metabolic panel. Yesterday she had a leukocytosis of 12.8. Coags are normal. UA shows neg ative nitrites, negative leukocyte esterase. IMAGING: CT abdomen and pelvis again showed distended gallbladder; dilated common bile duct, maximal transverse diameter 8 mm, without obstructing lesion demonstrated; enlarged anteverted, anteflexed u terus; likely leiomyoma uterus, 2 cm lower uterine segment cyst containing nabothian cyst. Chest x-r ay: No evidence of any acute cardiopulmonary disease. More x-ray was unremarkable. ASSESSMENT AND PLAN: A 53-year-old female coming in with back and abdominal pain with findings of di lated common bile duct on CT abdomen and pelvis studies. 1. Back and abdominal pain. Again, possibly secondary to stone in the common bile duct as there is dilatation. We will go and order for MRCP. Continue pain control medications and IV fluids. Contin ue to keep her n.p.o. for now. Follow up the results of the a.m. labs and the MRCP results. 2. Hyperglycemia. The patient came in with elevated blood sugar. A1c result is still pending. Unk nown if she has a history of diabetes in the past, so will follow up A1c level. Continue sliding sca le insulin for now. Monitor sugars. 3. Low mean corpuscular volume, signs of anemia. Hemoglobin is actually 14, however. Will go ahead and check iron panel. Monitor CBC for now. Dictated By: CATIE BERNSTEIN Conf#: [id number] [facility]#: [id number]
[2018-11-30 10:24] VITALS: BP 153/83; PULSE 71
[2018-11-30] MEDS: ACETAMINOPHEN 325 MG TAB PO PRN (10:26)
[2018-11-30] MEDS ORDERED: SENNA TAB PO PRN (12:30)
[2018-11-30] MEDS ORDERED: METF500T3 PO (12:59)
--- NOTE | 2018-11-30 13:01 | PDOCDIS ---
Discharge Instructions DIAGNOSIS Discharge Diagnosis Newly diagnosed diabetes mellitus Chronic headache, unspecified CONDITION [id number] Patient Condition: Behys5r Good HOME CARE INSTRUCTIONS: [id number] Special Diet: [id number] Controlled carbohydrate ACTIVITY: [id number] Activity Restrictions: [id number] No Restrictions FOLLOW UP/APPOINTMENTS Follow-up Plan 1. Take all medications as prescribed including metformin. 2. For headache, take tylenol and ibuprofen as needed. 3. See your primary care doctor as scheduled. 4. If you develop vomiting and cannot keep down foods or liquids, return to the emergency room. 1. [place] todos los medicamentos segn lo prescrito, incluida la metformina. 2. Para el dolor de patricia, tome tylenol e ibuprofeno segn sea necesario. 3. Consulte a garcia mdico de atencin primaria segn lo programado. 4. Si desarrolla vmitos y no puede mantener bajos los alimentos o lquidos, regrese a la lucas de emergencias. PARI DWYER MD November 30, 2018 13:01
[2018-11-30 14:00] VITALS: BP 149/81; PULSE 69; RESP 18
--- NOTE | 2018-11-30 19:49 | DS ---
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 She said the lower back and right upper buttock/hip area pain is been going on for 2 years. The suprapubic/lower abdominal area pain for the past 3 days. She said at times walking has been difficult because of pain. She denied urinary or bladder incontinence. No other complaints. When she presented to ER, CT abdomen/pelvis was done which shows the followin. No gastrointestinal disease. Specifically unremarkable appendix. 2. Distended gallbladder otherwise unremarkable. Dilated common bile duct maximal transverse diameter 8 mm without obstructing lesion demonstrated. Follow-up MRCP may be helpful. 3. Enlarged anteverted anteflexed uterus likely a leiomyomatous uterus with a 2 cm lower uterine segment cyst consistent with a Nabothian cyst. The enlarged uterus impresses the urinary bladder which is otherwise unremarkable. No adnexal masses. Follow-up pelvic ultrasound may be helpful. 4. No calcified urinary calculi or obstructive uropathy. 2.5 cm right inferior parapelvic renal cyst. Labs shows a WBC of almost 13,000 and blood glucose of around 320. She denied history of diabetes. UA is suggestive of UTI, which correlates with suprapubic/lower abdominal pain Hospital Course For the abdominal pain, an MRCP was done that was completely unremarkable, with no gallstones, dilated CBD, pancreatitis, or other disease. For headache, head CT was negative. She was found to have newly diagnosed diabetes with elevated HgbA1C. Met with special education paraeducator, will discharge on metformin. She actually still had moderate headache on discharge. Educated on outpatient pain control. Home Meds Active Scripts Metformin Hcl* (Metformin Hcl* ER) 500 Mg Tab.sr.24h, 500 MG PO BID, #30 TAB Prov:PARI DWYER MD 11/30/18 Reported Medications Acetaminophen* (Acetaminophen*) 500 MG Extra Strength Tablet, 500 MG PO Q4H PRN for PAIN AND OR ELEVATED TEMP, TAB 11/27/18 Follow-up Plan 1. Take all medications as prescribed including metformin. 2. For headache, take tylenol and ibuprofen as needed. 3. See your primary care doctor as scheduled. 4. If you develop vomiting and cannot keep down foods or liquids, return to the emergency room. 1. [place] todos los medicamentos segn lo prescrito, incluida la metformina. 2. Para el dolor de patricia, tome tylenol e ibuprofeno segn sea necesario. 3. Consulte a garcia mdico de atencin primaria segn lo programado. 4. Si desarrolla vmitos y no puede mantener bajos los alimentos o lquidos, regrese a la lucas de emergencias. Primary Care Provider Not On Staff Doctor Time spent on discharge: > 30 minutes Pending Labs Laboratory Tests Test 11/29/18 20:12 11/30/18 02:11 11/30/18 05:40 11/30/18 07:58 Bedside 191 155 185 Glucose mg/dL (70-220) mg/dL (70-220) mg/dL (70-220) White Blood 5.2 Count 10^3/ul (4.8-1 0.8) Red Blood 5.38 Count 10^6/ul (4.20- 5.40) Hemoglobin 13.2 g/dl (12.0-16. 0) Hematocrit 40.5 % (37.0-47.0) Mean 75.3 Corpuscular fl (82.0-101.0 Volume ) Mean 24.5 Corpuscular pg (29.0-33.0) Hemoglobin Mean 32.6 Corpuscular g/dl (32.0-37. Hemoglobin Conc 0) ent Red Cell 14.4 Distribution % (11.5-14.5) Width Platelet Count 255 10^3/UL (140-4 15) Mean Platelet 11.9 Volume fl (7.4-10.4) Immature 0.400 Granulocytes % % (0.001-0.429 ) Neutrophils % 46.9 % (39.0-77.0) Lymphocytes % 42.3 % (15.0-51.0) Monocytes % 7.3 % (0.0-11.0) Eosinophils % 2.3 % (0.0-7.0) Basophils % 0.8 % (0.0-2.0) Nucleated Red 0.0 Blood Cells % /100WBC (0.0-0 .0) Immature 0.020 Granulocytes # 10^3/ul (0.0-0 .031) Neutrophils # 2.4 10^3/ul (1.6-7 .5) Lymphocytes # 2.2 10^3/ul (0.8-2 .9) Monocytes # 0.4 10^3/ul (0.3-0 .9) Eosinophils # 0.1 10^3/ul (0.0-0 .5) Basophils # 0.0 10^3/ul (0.0-0 .1) Nucleated Red 0.0 Blood Cells # 10^3/ul (0.0-0 .0) Sodium Level 140 mmol/L (135-14 4) Potassium 3.6 Level mmol/L (3.5-5. 1) Chloride Level 105 mmol/L (97-110 ) Carbon Dioxide 26 Level mmol/L (21-31) Anion Gap 9 (5-13) Blood Urea 21 Nitrogen mg/dl (7-20) Creatinine 0.59 mg/dl (0.44-1. 00) Est Glomerular > 60 Filtrat mL/min (>60) Rate mL/min Glucose Level 163 mg/dl (70-220) Calcium Level 9.5 mg/dl (8.4-10. 2) Test 11/30/18 12:16 11/30/18 17:18 Bedside 183 191 Glucose mg/dL (70-220) mg/dL (70-220) PARI DWYER MD November 30, 2018 19:49
== END 2018-11-30 17:50 | disposition home or self-care (01) | DRG 690 ==
LOC: E/R 20:03 → PP2 11-27 04:02 → OBSVTOIN 11-28 10:14
PROVIDERS: ADMIT Internal Medicine; ATTEND Internal Medicine
DX: N39.0 Urinary tract infection, site not specified (principal); K82.8 Other specified diseases of gallbladder; K83.8 Other specified diseases of biliary tract; E78.00 Pure hypercholesterolemia, unspecified; E11.9 Type 2 diabetes mellitus without complications; R51 Headache
CPT/HCPCS: 36415; 70450; 71045; 72100; 74176; 74181; 76705; 80048; 80053; 80061; 80076; 81001; 82962; 83036; 83540; 83605; 83690; 83735; 84100; 84484; 85025; 85610; 85730; 87086; 93005; 96365; 96375; 97161; G0378; J0696; J1815; J1885; J2060; J2270; J2405; J2916; J7030; J7042